=== PATIENT | female | born 1955 | race Caucasian/White ===

== ENCOUNTER 2017-01-12 12:31 | Day surgery (SDC) | payer OTHER ==
[2017-01-10 09:29] LABS: BLOOD UREA NITROGEN 21 mg/dL (7-18)
[2017-01-10 09:39] LABS: ASPARTATE AMINO TRANSFERASE 13 U/L (15-37)
[~2017-01-12] VITALS: Ht 160 cm; Wt 56.7 kg
[~2017-01-12 12:31] MED LIST: ASPI-496 PO; DILT240C9 PO; ESCI20TA PO; EVOL140P SC; FENO45CA2 PO; METF500T4 PO; TICA90TA PO; VALS1TAB30 PO
[2017-01-12 13:08] VITALS: BP 119/82
[2017-01-12] MEDS ORDERED: SODIUM CHLORIDE 0.9% 1,000 ML IV SCH (13:10)
[2017-01-12] MEDS ORDERED: VISIPAQUE 270 MG/ML, 150ML BOTTLE ONE (14:30)
[2017-01-12] MEDS ORDERED: NALOXONE 1 MG/ML, 2ML ONE (15:12)
[2017-01-12] MEDS ORDERED: FENTANYL PF 100 MCG/2ML ONE ×2 (15:12→16:00)
[2017-01-12] MEDS ORDERED: HEPARIN 1,000 UNITS/ML, 10ML ONE (15:12)
[2017-01-12] MEDS ORDERED: MIDAZOLAM 1 MG/ML, 5ML ONE (15:12)
[2017-01-12] MEDS ORDERED: LIDOCAINE 2%, 20ML ONE (15:36)
[2017-01-13] MEDS ORDERED: ASPIRIN 81 MG TABLET EC PO SCH (06:00)
[2017-01-13] MEDS ORDERED: metFORMIN 500 MG TABLET PO SCH (08:00)
[2017-01-13] MEDS ORDERED: FENOFIBRIC ACID 45 MG HOMEMEDPO SCH (09:00)
[2017-01-13] MEDS ORDERED: ESCITALOPRAM 20MG HOMEMEDPO SCH (09:00)
[2017-01-13] MEDS ORDERED: HYDROCHLOROTHIAZIDE 25 MG TABLET PO SCH (09:00)
[2017-01-13] MEDS ORDERED: VALSARTAN 320 MG TABLET PO SCH (09:00)
[2017-01-13] MEDS ORDERED: DILTIAZEM 240 MG CAP.ER.24H PO SCH (09:00)
[2017-01-16] MEDS ORDERED: EVOLOCUMAB SC SCH (09:00)
== END 2017-01-12 18:34 | disposition home or self-care (01) ==
LOC: OUT 12:31 → 4NOR 17:15 → OUT 18:34
PROVIDERS: ATTEND Internal Medicine Cardiovascular Disease
DX: I70.212 Atherosclerosis of native arteries of extremities with intermittent claudication, left leg (principal); E11.9 Type 2 diabetes mellitus without complications; E78.5 Hyperlipidemia, unspecified; I10 Essential (primary) hypertension; Z79.82 Long term (current) use of aspirin; Z88.6 Allergy status to analgesic agent; Z88.8 Allergy status to other drugs, medicaments and biological substances; Z71.6 Tobacco abuse counseling
CPT/HCPCS: 36415; 37225; 75625; 75710; 80053; 80061; 85025; 99156; 99157; C1714; C1760; C1769; C1884; C1894; C2623; J1644; J2250; J3010; J3490; Q9966; Q9967; J2310

== ENCOUNTER → 2017-06-21 | Outpatient (CLI) | payer OTHER | LOC: CVU 09:57 | PROVIDERS: ATTEND Internal Medicine Cardiovascular Disease | DX: I70.203 Unspecified atherosclerosis of native arteries of extremities, bilateral legs (principal); Z87.891 Personal history of nicotine dependence | CPT/HCPCS: 93922; 93925 ==

== ENCOUNTER 2017-08-09 09:33 | Day surgery (SDC) | payer OTHER ==
[2017-08-07 11:49] LABS: BASOPHILS # (AUTO) 0.09 x10^3/uL (0-0.1); BASOPHILS % (AUTO) 1 % (0-1); EOSINOPHILS # (AUTO) 0.13 x10^3/uL (0-0.4); EOSINOPHILS % (AUTO) 1 % (1-7); LYMPHOCYTES # (AUTO) 3.82 x10^3/uL (1-3.4); LYMPHOCYTES % (AUTO) 31 % (22-44); MD NO; MEAN CORPUSCULAR HEMOGLOBIN 32.7 pg (27.0-34.8); MEAN CORPUSCULAR HGB CONC 34.4 g/dL (32.4-35.8); MEAN PLATELET VOLUME 7.6 fL (7.4-10.4); MONOCYTES # (AUTO) 1.34 x10^3/uL (0.2-0.8); MONOCYTES % (AUTO) 11 % (2-9); NEUTROPHILS # (AUTO) 7.13 x10^3/uL (1.8-6.8); NEUTROPHILS % (AUTO) 57 % (42-75); PLATELET COUNT 499 x10^3/uL (130-400); RED BLOOD COUNT 4.67 x10^6/uL (3.82-5.3); RED CELL DISTRIBUTION WIDTH 14.5 % (9.6-15.2)
[2017-08-07 11:58] LABS: ANION GAP 4 mmol/L (5-15); CALCIUM 9.5 mg/dL (8.5-10.1); CHLORIDE 107 mmol/L (98-107); CREATININE 0.76 mg/dL (0.55-1.02)
[~2017-08-09] VITALS: Ht 160 cm; Wt 56.3 kg
[2017-08-09 10:06] VITALS: BP 110/79
[2017-08-09] MEDS ORDERED: VISIPAQUE 270 MG/ML, 150ML BOTTLE ONE (12:00)
[2017-08-09] MEDS ORDERED: LIDOCAINE 1%, 20ML ONE (12:49)
[2017-08-09] MEDS ORDERED: FLUMAZENIL 0.1 MG/1 ML, 5ML ONE (13:10)
[2017-08-09] MEDS ORDERED: NALOXONE 1 MG/ML, 2ML ONE (13:10)
[2017-08-09] MEDS ORDERED: HEPARIN 1,000 UNITS/ML, 10ML ONE (13:10)
[2017-08-09] MEDS ORDERED: MIDAZOLAM 1 MG/ML, 5ML ONE (13:10)
[2017-08-09] MEDS ORDERED: NITROGLYCERIN 5 MG/ML, 10ML ONE (13:10)
[2017-08-09] MEDS ORDERED: FENTANYL PF 100 MCG/2ML ONE ×2 (13:10)
[2017-08-09] MEDS ORDERED: PROTAMINE SULFATE 10 MG/ML, 25ML ONE (13:11)
[2017-08-09] MEDS ORDERED: CLOPIDOGREL 300 MG TABLET ONE (15:01)
== END 2017-08-09 17:20 | disposition home or self-care (01) ==
LOC: OUT 09:33
PROVIDERS: ATTEND Internal Medicine Cardiovascular Disease
DX: I70.213 Atherosclerosis of native arteries of extremities with intermittent claudication, bilateral legs (principal); I10 Essential (primary) hypertension; E78.2 Mixed hyperlipidemia; E11.9 Type 2 diabetes mellitus without complications; Z79.82 Long term (current) use of aspirin; Z88.1 Allergy status to other antibiotic agents; Z88.8 Allergy status to other drugs, medicaments and biological substances; Z71.6 Tobacco abuse counseling
CPT/HCPCS: 36415; 37227; 75716; 80048; 85025; 99156; 99157; C1714; C1725; C1751; C1760; C1769; C1876; C1884; C1894; J1644; J2250; J2310; J2720; J3010; J3490; Q9966; 75630

== ENCOUNTER → 2019-03-07 | Outpatient (CLI) | payer OTHER ==
[~2019-03-07] MED LIST changes: +METF500T17 PO; -METF500T4 PO
== END | disposition home or self-care (01) ==
LOC: CVU 13:39
PROVIDERS: ATTEND Internal Medicine Cardiovascular Disease
DX: I65.23 Occlusion and stenosis of bilateral carotid arteries (principal); I10 Essential (primary) hypertension; E78.5 Hyperlipidemia, unspecified; I73.9 Peripheral vascular disease, unspecified; Z82.49 Family history of ischemic heart disease and other diseases of the circulatory system
CPT/HCPCS: 93880

== ENCOUNTER 2019-12-20 12:34 | Inpatient (IN) | payer OTHER ==
[~2019-12-20] VITALS: Ht 160 cm; Wt 56.5 kg
[~2019-12-20 12:34] MED LIST changes: +DILT240C47 PO; -DILT240C9 PO; -EVOL140P SC; +EVOL140P3 SC
--- NOTE | 2019-12-20 13:00 | NUR ---
PT REPORTS INTERMITTENT ABD PAIN FOR ONE WEEK THAT WAS PRECEDED BY DIARRHEA THAT WAS USUALLY RELIEVED AFTER DIARRHEA. PT DENIES VOMITING, FEVERS, BODY ACHES, OR CHILLS.
[2019-12-20 13:28] LABS: MICROSCOPIC INDICATED
[2019-12-20] MEDS ORDERED: SODIUM CHLORIDE 0.9% 1,000ML IVBOLUS ONE (13:30)
[2019-12-20 13:47] LABS: MEAN CORPUSCULAR HGB CONC 34.4 g/dL (32.4-35.8); MEAN PLATELET VOLUME 7.3 fL (7.4-10.4); PLATELET COUNT 616 x10^3/uL (130-400); RED BLOOD COUNT 4.37 x10^6/uL (3.82-5.3); RED CELL DISTRIBUTION WIDTH 13.1 % (9.6-15.2)
[2019-12-20 13:57] LABS: ALANINE AMINOTRANSFERASE 14 U/L (12-78); ALBUMIN 3.3 g/dL (3.4-5.0); ANION GAP 8 mmol/L (5-15); CALCIUM 10.2 mg/dL (8.5-10.1); CHLORIDE 98 mmol/L (98-107); CREATININE 0.68 mg/dL (0.55-1.02)
[2019-12-20 14:00] LABS: ALKALINE PHOSPHATASE 96 U/L (45-117); BILIRUBIN,TOTAL 0.4 mg/dL (0.2-1.0); TOTAL PROTEIN 8.4 g/dL (6.4-8.2)
[2019-12-20 14:07] LABS: BASOPHILS # (AUTO) 0.04 x10^3/uL (0-0.1); BASOPHILS % (AUTO) 0 % (0-1); EOSINOPHILS # (AUTO) 0.01 x10^3/uL (0-0.4); EOSINOPHILS % (AUTO) 0 % (1-7); LYMPHOCYTES # (AUTO) 1.23 x10^3/uL (1-3.4); LYMPHOCYTES % (AUTO) 5 % (22-44); MD SCAN; MONOCYTES # (AUTO) 2.03 x10^3/uL (0.2-0.8); MONOCYTES % (AUTO) 9 % (2-9); NEUTROPHILS # (AUTO) 19.61 x10^3/uL (1.8-6.8); NEUTROPHILS % (AUTO) 86 % (42-75)
--- NOTE | 2019-12-20 14:10 | NUR ---
PT TO RESTROOM AFTER LITER BOLUS. PT AWARE OF NEED FOR STOOL SAMPLE.
--- NOTE | 2019-12-20 15:20 | NUR ---
3 P'S ADDRESSED. PT COMFORTABLE. VSS.
[2019-12-20] MEDS ORDERED: OMNIPAQUE 350 MG/ML, 100ML BOTTLE ONE (15:40)
[2019-12-20] MEDS ORDERED: METRONIDAZOLE PMX 500MG/100ML 100 ML ONE (16:26)
[2019-12-20] MEDS ORDERED: AMPICILLIN/SULBACTAM 3 GM in SODIUM CHLORIDE 0.9% 100 ML IV ONE (16:30)
[2019-12-20] MEDS ORDERED: METRONIDAZOLE PMX 500MG/100ML 100 ML IV ONE (16:30)
--- NOTE | 2019-12-20 16:31 | NUR ---
ANTIBITOICS STARTED PER MD ORDER. 3 P'S ADDRESSED AND PT COMFORTABLE. WAITING ON IR FOR ABSCESS DRAINAGE.
[2019-12-20] MEDS ORDERED: FLUMAZENIL 0.1 MG/1 ML, 5ML ONE (16:52)
[2019-12-20] MEDS ORDERED: FENTANYL PF 100 MCG/2ML ONE (16:52)
[2019-12-20] MEDS ORDERED: MIDAZOLAM 1 MG/ML, 5ML ONE (16:52)
[2019-12-20] MEDS ORDERED: NALOXONE 1 MG/ML, 2ML ONE (16:52)
[2019-12-20] MEDS ORDERED: LIDOCAINE 1%, 10ML ONE (16:53)
--- NOTE | 2019-12-20 17:10 | NUR ---
PT IN IR.
[2019-12-20] MEDS ORDERED: NICOTINE 14MG/24 HR PATCH.TD24 TD ONE (17:30)
[2019-12-20] MEDS ORDERED: ONDANSETRON 2MG/ML, 2ML IVPush PRN (17:30)
[2019-12-20] MEDS ORDERED: HYDROcodone/APAP 5/325 TABLET PO PRN (17:30)
[2019-12-20] MEDS ORDERED: MORPHINE SULFATE 4 MG/ML, 1ML IVPush PRN (17:30)
[2019-12-20] MEDS ORDERED: DOCUSATE 100 MG CAPSULE PO PRN (17:30)
[2019-12-20] MEDS ORDERED: LABETALOL 5MG/ML, 20ML IVPush PRN (17:30)
[2019-12-20] MEDS ORDERED: ONDANSETRON ODT 4 MG PO PRN (17:30)
[2019-12-20] MEDS ORDERED: ENALAPRILAT 1.25 MG/ML, 2ML IVPush PRN (17:30)
[2019-12-20] MEDS ORDERED: POLYETHYLENE GLYCOL 17 GM PACKET PO PRN (17:30)
[2019-12-20] MEDS ORDERED: PIPERACILLIN/TAZO/PMX 3.375GM 50 ML IV SCH (17:30)
--- NOTE | 2019-12-20 17:53 | NUR ---
PT BACK FROM IR. CHARLETTES. VERONICA STARTED. WAITING ON BED ASSIGNMENT UPSTAIRS.
--- NOTE | 2019-12-20 18:28 | NUR ---
BREAK RN: ATTEMPTED TO CALL REPORT X1
--- NOTE | 2019-12-20 18:37 | NUR ---
BREAK RN: PT AMBULATED TO BATHROOM WITH STEADY GAIT
[2019-12-20] MEDS ORDERED: KETOROLAC 30 MG/1 ML ONE (19:17)
[2019-12-20] MEDS: KETOROLAC 30 MG/1 ML IV PRN (19:25)
--- NOTE | 2019-12-20 19:26 | NUR ---
PT UP TO RESTROOM. PT REFUSED MORPHINE OR NORCO AND WANTED SOMETHING [employer] FOR PAIN. TORADOL GIVEN.
[2019-12-20 19:43] VITALS: BP 103/73
[2019-12-20] MEDS: SODIUM CHLORIDE 0.9% 1,000 ML IV SCH (20:33)
[2019-12-20] MEDS: PIPERACILLIN/TAZO/PMX 3.375GM 50 ML IV SCH (20:33)
[2019-12-21] MEDS: PIPERACILLIN/TAZO/PMX 3.375GM 50 ML IV SCH ×3 (02:33→14:27)
[2019-12-21 02:34] VITALS: BP 96/62
[2019-12-21 03:32] LABS: CLOSTRIDIUM DIFFICILE ANTIGEN NEGATIVE; CLOSTRIDIUM DIFFICILE TOXIN NEGATIVE (Negative)
[2019-12-21] MEDS: SODIUM CHLORIDE 0.9% 1,000 ML IV SCH ×2 (03:42→12:32)
[2019-12-21 05:01] LABS: MEAN CORPUSCULAR HGB CONC 34.1 g/dL (32.4-35.8); MEAN CORPUSCULAR VOLUME 93.7 fL (80-100); MEAN PLATELET VOLUME 7.6 fL (7.4-10.4); PLATELET COUNT 497 x10^3/uL (130-400); RED BLOOD COUNT 3.64 x10^6/uL (3.82-5.3); RED CELL DISTRIBUTION WIDTH 13.4 % (9.6-15.2)
[2019-12-21 05:08] LABS: ANION GAP 7 mmol/L (5-15); CHLORIDE 108 mmol/L (98-107); CREATININE 0.79 mg/dL (0.55-1.02)
[2019-12-21 06:25] LABS: MD YES
[2019-12-21 06:27] LABS: BAND#(MANUAL) 4.56 x10^3/uL; BANDS%(MANUAL) 15 % (0-7); LYMPH#(MANUAL) 3.34 x10^3/uL (1-3.4); LYMPHS% (MANUAL) 11 % (22-44); MONOS#(MANUAL) 1.82 x10^3/uL (0.3-2.7); MONOS% (MANUAL) 6 % (2-9); SEG#(MANUAL) 20.67 x10^3/uL (1.8-6.8); SEGS% (MANUAL) 68 % (42-75); TOXIC GRAN 1+
[2019-12-21 06:28] LABS: <PLATELET ESTIMATE> INCREASED; <PLT MORPHOLOGY> NORMAL PLT MORPH; <RBC MORPHOLOGY> NORMAL
[2019-12-21 07:10] VITALS: BP 93/62
[2019-12-21] MEDS: KETOROLAC 30 MG/1 ML IV PRN (08:41)
[2019-12-21 12:30] VITALS: BP 103/67
[2019-12-21] MEDS ORDERED: POTASSIUM CHLORIDE 40 MEQ in SODIUM CHLORIDE 0.9% 500 ML IV ONE (15:30)
[2019-12-21 19:33] VITALS: BP 123/76
[2019-12-21] MEDS: ACETAMINOPHEN 325 MG TABLET PO PRN (19:58)
[2019-12-21] MEDS: PIPERACILLIN/TAZO/PMX 4.5GM 100 ML IV SCH (20:48)
[2019-12-22 00:19] VITALS: BP 118/75
[2019-12-22] MEDS: SODIUM CHLORIDE 0.9% 1,000 ML IV SCH ×3 (00:25→16:17)
[2019-12-22] MEDS: PIPERACILLIN/TAZO/PMX 4.5GM 100 ML IV SCH ×4 (02:35→20:08)
[2019-12-22 06:10] LABS: ANION GAP 12 mmol/L (5-15); CALCIUM 9.2 mg/dL (8.5-10.1); CHLORIDE 114 mmol/L (98-107); CREATININE 0.64 mg/dL (0.55-1.02)
[2019-12-22 06:15] VITALS: BP 97/56
[2019-12-22 06:15] LABS: MEAN CORPUSCULAR HEMOGLOBIN 31.7 pg (27.0-34.8); MEAN CORPUSCULAR HGB CONC 33.2 g/dL (32.4-35.8); MEAN CORPUSCULAR VOLUME 95.4 fL (80-100); PLATELET COUNT 539 x10^3/uL (130-400); RED BLOOD COUNT 3.41 x10^6/uL (3.82-5.3); RED CELL DISTRIBUTION WIDTH 13.4 % (9.6-15.2)
[2019-12-22 06:55] LABS: BASOPHILS % (AUTO) 0 % (0-1); EOSINOPHILS # (AUTO) 0.07 x10^3/uL (0-0.4); EOSINOPHILS % (AUTO) 0 % (1-7); LYMPHOCYTES # (AUTO) 1.93 x10^3/uL (1-3.4); LYMPHOCYTES % (AUTO) 8 % (22-44); MD SCAN; MONOCYTES # (AUTO) 1.11 x10^3/uL (0.2-0.8); MONOCYTES % (AUTO) 5 % (2-9); NEUTROPHILS # (AUTO) 21.68 x10^3/uL (1.8-6.8); NEUTROPHILS % (AUTO) 87 % (42-75)
[2019-12-22] MEDS: ACETAMINOPHEN 325 MG TABLET PO PRN (07:49)
[2019-12-22 12:16] VITALS: BP 119/70
[2019-12-22 20:10] VITALS: BP 118/74
[2019-12-23] MEDS: SODIUM CHLORIDE 0.9% 1,000 ML IV SCH ×3 (00:11→15:41)
[2019-12-23 00:16] VITALS: BP 115/71
[2019-12-23] MEDS: PIPERACILLIN/TAZO/PMX 4.5GM 100 ML IV SCH ×4 (01:40→19:53)
[2019-12-23 05:08] LABS: MEAN CORPUSCULAR HEMOGLOBIN 31.3 pg (27.0-34.8); MEAN CORPUSCULAR HGB CONC 32.9 g/dL (32.4-35.8); MEAN PLATELET VOLUME 7.7 fL (7.4-10.4); PLATELET COUNT 543 x10^3/uL (130-400); RED BLOOD COUNT 3.27 x10^6/uL (3.82-5.3)
[2019-12-23 05:16] LABS: ANION GAP 9 mmol/L (5-15); CALCIUM 8.9 mg/dL (8.5-10.1); CHLORIDE 114 mmol/L (98-107)
[2019-12-23 05:19] LABS: CREATININE 0.42 mg/dL (0.55-1.02)
[2019-12-23 06:09] LABS: BASOPHILS # (AUTO) 0.03 x10^3/uL (0-0.1); BASOPHILS % (AUTO) 0 % (0-1); EOSINOPHILS # (AUTO) 0.26 x10^3/uL (0-0.4); EOSINOPHILS % (AUTO) 2 % (1-7); LYMPHOCYTES # (AUTO) 1.91 x10^3/uL (1-3.4); LYMPHOCYTES % (AUTO) 11 % (22-44); MD SCAN; MONOCYTES # (AUTO) 0.97 x10^3/uL (0.2-0.8); MONOCYTES % (AUTO) 6 % (2-9); NEUTROPHILS % (AUTO) 82 % (42-75)
[2019-12-23 06:38] VITALS: BP 147/84
[2019-12-23] MEDS: ACETAMINOPHEN 325 MG TABLET PO PRN ×2 (07:46→19:46)
[2019-12-23] MEDS ORDERED: POTASSIUM CHLORIDE 20 MEQ TAB.ER.PRT PO ONE (09:30)
[2019-12-23 12:10] VITALS: BP 148/79
[2019-12-23 18:27] VITALS: BP 153/80
[2019-12-24 00:21] VITALS: BP 145/74
[2019-12-24] MEDS: PIPERACILLIN/TAZO/PMX 4.5GM 100 ML IV SCH ×4 (00:53→19:57)
[2019-12-24] MEDS: SODIUM CHLORIDE 0.9% 1,000 ML IV SCH ×2 (00:54→07:56)
[2019-12-24 04:59] LABS: BASOPHILS # (AUTO) 0.02 x10^3/uL (0-0.1); BASOPHILS % (AUTO) 0 % (0-1); EOSINOPHILS # (AUTO) 0.21 x10^3/uL (0-0.4); EOSINOPHILS % (AUTO) 2 % (1-7); LYMPHOCYTES % (AUTO) 18 % (22-44); MD NO; MEAN CORPUSCULAR HEMOGLOBIN 31.9 pg (27.0-34.8); MEAN CORPUSCULAR HGB CONC 33.7 g/dL (32.4-35.8); MEAN CORPUSCULAR VOLUME 94.6 fL (80-100); MEAN PLATELET VOLUME 7.4 fL (7.4-10.4); MONOCYTES # (AUTO) 0.74 x10^3/uL (0.2-0.8); MONOCYTES % (AUTO) 6 % (2-9); NEUTROPHILS # (AUTO) 9.91 x10^3/uL (1.8-6.8); NEUTROPHILS % (AUTO) 75 % (42-75); PLATELET COUNT 584 x10^3/uL (130-400); RED BLOOD COUNT 3.37 x10^6/uL (3.82-5.3); RED CELL DISTRIBUTION WIDTH 13.5 % (9.6-15.2)
[2019-12-24 05:00] LABS: HCT (SEDRATE) 31.8 % (34.6-47.8)
[2019-12-24 05:09] LABS: CHLORIDE 112 mmol/L (98-107)
[2019-12-24 05:22] LABS: ANION GAP 9 mmol/L (5-15); CALCIUM 8.9 mg/dL (8.5-10.1); CREATININE 0.55 mg/dL (0.55-1.02)
[2019-12-24 06:42] VITALS: BP 154/83
[2019-12-24] MEDS ORDERED: POTASSIUM CHLORIDE 20 MEQ TAB.ER.PRT PO ONE ×2 (07:30→17:00)
[2019-12-24] MEDS: ACETAMINOPHEN 325 MG TABLET PO PRN ×2 (11:46→20:03)
[2019-12-24 12:15] VITALS: BP 148/81
[2019-12-24 12:18] VITALS: BP 148/81
[2019-12-24 12:26] VITALS: BP 132/94
[2019-12-24 18:26] VITALS: BP 142/80
[2019-12-25] MEDS: SODIUM CHLORIDE 0.9% 1,000 ML IV SCH ×2 (00:06→08:24)
[2019-12-25 01:39] VITALS: BP 143/80
[2019-12-25] MEDS: PIPERACILLIN/TAZO/PMX 4.5GM 100 ML IV SCH ×2 (01:49→08:24)
[2019-12-25 04:03] LABS: BASOPHILS # (AUTO) 0.02 x10^3/uL (0-0.1); BASOPHILS % (AUTO) 0 % (0-1); EOSINOPHILS # (AUTO) 0.21 x10^3/uL (0-0.4); EOSINOPHILS % (AUTO) 2 % (1-7); LYMPHOCYTES # (AUTO) 2.12 x10^3/uL (1-3.4); LYMPHOCYTES % (AUTO) 21 % (22-44); MD NO; MEAN CORPUSCULAR HEMOGLOBIN 31.5 pg (27.0-34.8); MEAN CORPUSCULAR HGB CONC 33.2 g/dL (32.4-35.8); MEAN CORPUSCULAR VOLUME 95.1 fL (80-100); MEAN PLATELET VOLUME 6.9 fL (7.4-10.4); MONOCYTES # (AUTO) 0.84 x10^3/uL (0.2-0.8); MONOCYTES % (AUTO) 8 % (2-9); NEUTROPHILS % (AUTO) 68 % (42-75); PLATELET COUNT 533 x10^3/uL (130-400); RED BLOOD COUNT 3.04 x10^6/uL (3.82-5.3); RED CELL DISTRIBUTION WIDTH 13.4 % (9.6-15.2)
[2019-12-25 04:13] LABS: ANION GAP 7 mmol/L (5-15); CALCIUM 8.3 mg/dL (8.5-10.1); CHLORIDE 113 mmol/L (98-107); CREATININE 0.32 mg/dL (0.55-1.02)
[2019-12-25 06:30] VITALS: BP 152/84
[2019-12-25] MEDS ORDERED: CEFTRIAXONE PMX 2GM/50ML 50 ML IV SCH (10:00)
[2019-12-25 12:18] VITALS: BP 134/82
[2019-12-25] MEDS ORDERED: LINEZOLID 600 MG TABLET PO SCH ×2 (17:00→21:00)
== END 2019-12-25 21:00 | disposition home or self-care (01) | DRG 872 ==
LOC: ED 14:54 → EDIP 17:36 → 3N 19:41
PROVIDERS: ADMIT Family Medicine; ATTEND Family Medicine
PROC: 0W9H30Z Drainage of Retroperitoneum with Drainage Device, Percutaneous Approach (ICD-10-PCS; 2019-12-20)
PROC: 02HV33Z Insertion of Infusion Device into Superior Vena Cava, Percutaneous Approach (ICD-10-PCS; principal; 2019-12-24)
PROC: B5181ZA Fluoroscopy of Superior Vena Cava using Low Osmolar Contrast, Guidance (ICD-10-PCS; 2019-12-24)
PROC: B548ZZA Ultrasonography of Superior Vena Cava, Guidance (ICD-10-PCS; 2019-12-24)
DX: A41.9 Sepsis, unspecified organism (principal); E87.1 Hypo-osmolality and hyponatremia; F19.20 Other psychoactive substance dependence, uncomplicated; K57.20 Diverticulitis of large intestine with perforation and abscess without bleeding; E78.5 Hyperlipidemia, unspecified; E83.52 Hypercalcemia; E86.0 Dehydration; E87.6 Hypokalemia; F12.10 Cannabis abuse, uncomplicated; F17.210 Nicotine dependence, cigarettes, uncomplicated; I10 Essential (primary) hypertension; I73.9 Peripheral vascular disease, unspecified; N73.9 Female pelvic inflammatory disease, unspecified; M79.89 Other specified soft tissue disorders; D72.829 Elevated white blood cell count, unspecified; Z82.49 Family history of ischemic heart disease and other diseases of the circulatory system; Z82.71 Family history of polycystic kidney; Z95.820 Peripheral vascular angioplasty status with implants and grafts; Z79.899 Other long term (current) drug therapy; Z95.828 Presence of other vascular implants and grafts; Z84.1 Family history of disorders of kidney and ureter; Z88.8 Allergy status to other drugs, medicaments and biological substances; Z79.01 Long term (current) use of anticoagulants
CPT/HCPCS: 36415; 75989; 84145; 89055; 96361; 96365; 96367; 99285; J3490; 36573; 49406; 74177; 80048; 80053; 81001; 83605; 83735; 85025; 85651; 86140; 87040; 87070; 87075; 87077; 87086; 87186; 87205; 87324; 99156; 99157; G0378; J0295; J0696; J1885; J2250; J2543; J3010; J3480; Q9967; C1729; C1751; C1769; J2310; J7030; J7040

== ENCOUNTER → 2020-01-14 | Outpatient (CLI) | payer OTHER ==
[~2020-01-14] MED LIST changes: +OMNIPAQUE 350 MG/ML, 100ML BOTTLE ONE
== END | disposition home or self-care (01) ==
LOC: CFH 13:52
PROVIDERS: ATTEND Internal Medicine Infectious Disease
DX: N73.8 Other specified female pelvic inflammatory diseases (principal); K65.1 Peritoneal abscess; K76.0 Fatty (change of) liver, not elsewhere classified; K76.89 Other specified diseases of liver
CPT/HCPCS: 74177; Q9967

== ENCOUNTER → 2020-02-05 | Outpatient (CLI) | payer OTHER ==
[~2020-02-05] MED LIST changes: +ASPI81TA45 PO; +MULT-658 PO; -OMNIPAQUE 350 MG/ML, 100ML BOTTLE ONE; +ROSU5TAB12 PO
[2020-02-05 10:52] LABS: BASOPHILS % (AUTO) 1 % (0-1); EOSINOPHILS % (AUTO) 1 % (1-7); LYMPHOCYTES % (AUTO) 17 % (22-44); MEAN CORPUSCULAR HEMOGLOBIN 31.2 pg (27.0-34.8); MEAN CORPUSCULAR HGB CONC 33.2 g/dL (32.4-35.8); MONOCYTES % (AUTO) 8 % (2-9); NEUTROPHILS % (AUTO) 74 % (42-75); PLATELET COUNT 641 x10^3/uL (130-400); RED BLOOD COUNT 3.88 x10^6/uL (3.82-5.3); RED CELL DISTRIBUTION WIDTH 15.2 % (9.6-15.2)
[2020-02-05 11:05] LABS: ALANINE AMINOTRANSFERASE 18 U/L (12-78); ALBUMIN 3.2 g/dL (3.4-5.0); ANION GAP 4 mmol/L (5-15); CALCIUM 9.8 mg/dL (8.5-10.1); CHLORIDE 112 mmol/L (98-107); CREATININE 0.66 mg/dL (0.55-1.02)
[2020-02-05 11:07] LABS: ALKALINE PHOSPHATASE 89 U/L (45-117); BILIRUBIN,TOTAL 0.2 mg/dL (0.2-1.0); TOTAL PROTEIN 7.7 g/dL (6.4-8.2)
[2020-02-05 11:08] LABS: MD SCAN
== END | disposition home or self-care (01) ==
LOC: STAR 09:42
PROVIDERS: ATTEND Surgery
DX: Z01.818 Encounter for other preprocedural examination (principal)
CPT/HCPCS: 36415; 71046; 80053; 85025; 93005

== ENCOUNTER 2020-02-13 10:37 | Emergency (ER) | payer OTHER ==
[~2020-02-13] VITALS: Ht 160 cm; Wt 49.3 kg
[2020-02-13] MEDS ORDERED: SODIUM CHLORIDE FLUSH 10ML SYR IVF ONE (11:00)
[2020-02-13 11:44] LABS: ALANINE AMINOTRANSFERASE 17 U/L (12-78); ANION GAP 7 mmol/L (5-15); CALCIUM 10.1 mg/dL (8.5-10.1); CHLORIDE 102 mmol/L (98-107); CREATININE 0.63 mg/dL (0.55-1.02)
[2020-02-13 11:46] LABS: ALKALINE PHOSPHATASE 109 U/L (45-117); BILIRUBIN,TOTAL 0.2 mg/dL (0.2-1.0); TOTAL PROTEIN 8.1 g/dL (6.4-8.2)
[2020-02-13 11:55] LABS: BASOPHILS % (AUTO) 1 % (0-1); EOSINOPHILS % (AUTO) 2 % (1-7); LYMPHOCYTES % (AUTO) 14 % (22-44); MEAN CORPUSCULAR HEMOGLOBIN 31.4 pg (27.0-34.8); MEAN CORPUSCULAR HGB CONC 33.9 g/dL (32.4-35.8); MEAN PLATELET VOLUME 7.1 fL (7.4-10.4); MONOCYTES % (AUTO) 9 % (2-9); NEUTROPHILS % (AUTO) 75 % (42-75); PLATELET COUNT 793 x10^3/uL (130-400); RED BLOOD COUNT 3.88 x10^6/uL (3.82-5.3); RED CELL DISTRIBUTION WIDTH 14.2 % (9.6-15.2)
--- NOTE | 2020-02-13 12:09 | NUR ---
SERVICE TECH: PT CALLED FOR ROOM, NO ANSWER
--- NOTE | 2020-02-13 12:12 | NUR ---
MOTORS ASSEMBLER: PT TO ROOM FROM [facility]
--- NOTE | 2020-02-13 12:48 | NUR ---
PT TO IMAGING AT THIS TIME
[2020-02-13] MEDS ORDERED: OMNIPAQUE 350 MG/ML, 100ML BOTTLE ONE (12:59)
[2020-02-13 13:18] LABS: <RBC MORPHOLOGY> NORMAL; MD MORPH REVIEW ONLY
[2020-02-13 13:19] LABS: <PLATELET ESTIMATE> INCREASED; <PLT MORPHOLOGY> NORMAL PLT MORPH
[2020-02-13 13:25] LABS: MICROSCOPIC NOT IND
--- NOTE | 2020-02-13 13:33 | NUR ---
BREAK RN:BEDSIDE REPORT RECEIVED FROM PRIMARY RN.
[2020-02-13] MEDS ORDERED: ERTAPENEM 1 GM in SODIUM CHLORIDE 0.9% 50 ML IV ONE (14:30)
[2020-02-13 14:59] VITALS: BP 108/67
--- NOTE | 2020-02-13 15:32 | NUR ---
TASK RN: ABX ADMINISTERED AFTER CLARIFICATION THAT BLOOD CULTURES IN PROCESS RIGHT ARM PIV REMOVED PER PATIENT REQUEST
--- NOTE | 2020-02-13 15:51 | NUR ---
ABX COMPLETE, NO ABNORMAL REACTION NOTED DISCHARGED HOME WITH PLAN TO F/U WITH DR. THOMPSON (INFECTIOUS DISEASE DOC FOR PICC LINE ABX PLAN)
== END 2020-02-13 15:53 | disposition home or self-care (01) ==
LOC: ED 13:34
DX: K57.20 Diverticulitis of large intestine with perforation and abscess without bleeding (principal); R10.32 Left lower quadrant pain; Z87.891 Personal history of nicotine dependence
CPT/HCPCS: 36415; 36573; 74177; 80053; 81003; 83605; 83690; 84145; 85025; 87040; 96365; 99285; C1751; J1335; Q9967

== ENCOUNTER → 2020-02-14 | Outpatient (CLI) | payer OTHER ==
[~2020-02-14] MED LIST changes: +AMOX1TAB12 PO; +ERTA1VIA4 IV
== END | disposition home or self-care (01) ==
LOC: STAR 13:54
PROVIDERS: ATTEND Anesthesiology
DX: Z01.812 Encounter for preprocedural laboratory examination (principal); Z20.828 Contact with and (suspected) exposure to other viral communicable diseases
CPT/HCPCS: 36415; 87635

== ENCOUNTER 2020-02-18 05:58 | Day surgery (SDC) | payer OTHER ==
[~2020-02-18] VITALS: Ht 160 cm; Wt 50.0 kg
[~2020-02-18 05:58] MED LIST changes: -AMOX1TAB12 PO; -ERTA1VIA4 IV
[2020-02-18 06:38] VITALS: BP 129/83
[2020-02-18] MEDS ORDERED: CHLORHEXIDINE 15 ML UDC MM ONE (07:00)
[2020-02-18] MEDS ORDERED: LACTATED RINGERS 1,000 ML IV SCH (07:00)
[2020-02-18] MEDS ORDERED: MEPERIDINE/PF 25MG/0.5ML IVPush PRN (08:00)
[2020-02-18] MEDS ORDERED: EPHEDRINE 50 MG/ML, 1ML IVPush PRN (08:00)
[2020-02-18] MEDS ORDERED: ONDANSETRON 2MG/ML, 2ML IVPush PRN (08:00)
[2020-02-18] MEDS ORDERED: MIDAZOLAM 1 MG/ML, 2ML IV PRN (08:00)
[2020-02-18] MEDS ORDERED: OXYcodone 5 MG/5 ML ORAL.SOL UDC PO PRN (08:00)
[2020-02-18] MEDS ORDERED: PROMETHAZINE 25 MG/ML, 1ML IVPush PRN (08:00)
[2020-02-18] MEDS ORDERED: LABETALOL 5MG/ML, 20ML IV PRN (08:00)
[2020-02-18] MEDS ORDERED: HYDROmorphone 1 MG/ML, 1ML INJ IVPush PRN (08:00)
[2020-02-18] MEDS ORDERED: ALBUTEROL SULFATE 2.5 MG/3 ML NPPB PRN (08:00)
[2020-02-18] MEDS ORDERED: hydrALAzine 20 MG/ML, 1ML IV PRN (08:00)
[2020-02-18] MEDS ORDERED: FENTANYL PF 100 MCG/2ML IV PRN (08:00)
[2020-02-18] MEDS ORDERED: ACETAMINOPHEN 325 MG TABLET PO PRN (08:00)
[2020-02-18] MEDS ORDERED: DIPHENHYDRAMINE 50 MG/ML, 1ML IVPush PRN (08:00)
[2020-02-18] MEDS ORDERED: DIAZEPAM 5 MG/ML, 2ML IVPush PRN (08:00)
[2020-02-18] MEDS ORDERED: PROMETHAZINE 12.5 MG SUPP PR PRN (08:00)
[2020-02-18] MEDS ORDERED: PROPOFOL 10 MG/ML, 20ML ONE (08:40)
[2020-02-19] MEDS ORDERED: AMOX1TAB12 PO (10:55)
[2020-02-19] MEDS ORDERED: ERTA1VIA4 IV (11:17)
== END 2020-02-18 09:00 | disposition home or self-care (01) ==
LOC: OUT 05:58
PROVIDERS: ATTEND Surgery
DX: K57.20 Diverticulitis of large intestine with perforation and abscess without bleeding (principal); K56.699 Other intestinal obstruction unspecified as to partial versus complete obstruction; K63.5 Polyp of colon; I10 Essential (primary) hypertension; E78.5 Hyperlipidemia, unspecified; Z79.82 Long term (current) use of aspirin; Z79.899 Other long term (current) drug therapy; Z87.891 Personal history of nicotine dependence; Z88.8 Allergy status to other drugs, medicaments and biological substances; Z98.890 Other specified postprocedural states
CPT/HCPCS: 45330; J2704; J7120

== ENCOUNTER 2020-02-19 09:48 | Inpatient (IN) | payer OTHER ==
[~2020-02-19] VITALS: Ht 160 cm; Wt 53.0 kg
[~2020-02-19 09:48] MED LIST changes: +DILT-88 PO; -DILT240C47 PO
[2020-02-19] MEDS ORDERED: AMOX1TAB12 PO (10:55)
[2020-02-19] MEDS ORDERED: LACTATED RINGERS 1,000 ML IV SCH (11:00)
[2020-02-19] MEDS ORDERED: CHLORHEXIDINE 15 ML UDC MM ONE (11:00)
[2020-02-19 11:08] VITALS: BP 158/96
[2020-02-19] MEDS ORDERED: ERTA1VIA4 IV (11:17)
[2020-02-19] MEDS ORDERED: MIDAZOLAM 1 MG/ML, 2ML ONE (11:34)
[2020-02-19] MEDS ORDERED: FENTANYL PF 250 MCG/5ML ONE (11:35)
[2020-02-19] MEDS ORDERED: INDOCYANINE GREEN 25 MG VIAL ONE (12:30)
[2020-02-19] MEDS ORDERED: BUPIVACAINE/PF 0.5% ONE (12:31)
[2020-02-19] MEDS ORDERED: ONDANSETRON 2MG/ML, 2ML ONE (13:18)
[2020-02-19] MEDS ORDERED: CEFAZOLIN 1,000 MG ONE (13:18)
[2020-02-19] MEDS ORDERED: PROPOFOL 10 MG/ML, 20ML ONE (13:18)
[2020-02-19] MEDS ORDERED: SUCCINYLCHOLINE 20 MG/ML, 10ML ONE (13:18)
[2020-02-19] MEDS ORDERED: DEXAMETHASONE 4 MG/ML, 1ML ONE (13:18)
[2020-02-19] MEDS ORDERED: ROCURONIUM 10 MG/ML,10ML ONE (13:18)
[2020-02-19] MEDS ORDERED: SUGAMMADEX 200 MG/2 ML IVPush ONE (13:18)
[2020-02-19] MEDS ORDERED: METRONIDAZOLE PMX 500MG/100ML 100 ML ONE (13:39)
[2020-02-19] MEDS ORDERED: KETOROLAC 30 MG/1 ML IV PRN (16:00)
[2020-02-19] MEDS ORDERED: ALBUTEROL SULFATE 2.5 MG/3 ML NPPB PRN (16:00)
[2020-02-19] MEDS ORDERED: PROMETHAZINE 25 MG/ML, 1ML IV PRN (16:00)
[2020-02-19] MEDS ORDERED: hydrALAzine 20 MG/ML, 1ML IV PRN (16:00)
[2020-02-19] MEDS ORDERED: LABETALOL 5MG/ML, 20ML IV PRN (16:00)
[2020-02-19] MEDS ORDERED: ONDANSETRON 2MG/ML, 2ML IVPush PRN (16:00)
[2020-02-19] MEDS ORDERED: OXYcodone 5 MG/5 ML ORAL.SOL UDC PO PRN (16:00)
[2020-02-19] MEDS ORDERED: MEPERIDINE/PF 25MG/0.5ML IVPush PRN (16:00)
[2020-02-19] MEDS ORDERED: METOCLOPRAMIDE 5 MG/ML, 2ML IV PRN (16:00)
[2020-02-19] MEDS: FENTANYL PF 100 MCG/2ML IV PRN ×4 (16:00→17:00)
[2020-02-19] MEDS ORDERED: DIAZEPAM 5 MG/ML, 2ML IV PRN ×2 (16:00)
[2020-02-19] MEDS ORDERED: FENTANYL PF 100 MCG/2ML ONE ×2 (16:01→16:55)
[2020-02-19] MEDS ORDERED: MEPERIDINE/PF 25MG/ML,1ML ONE (16:18)
[2020-02-19] MEDS ORDERED: OXYcodone 5 MG/5 ML ORAL.SOL UDC ONE (16:18)
[2020-02-19] MEDS ORDERED: HYDROmorphone 1 MG/ML, 1ML INJ ONE ×2 (17:09→19:43)
[2020-02-19] MEDS: HYDROmorphone 1 MG/ML, 1ML INJ IV PRN ×3 (17:14→19:40)
[2020-02-19] MEDS ORDERED: DIPHENHYDRAMINE 25 MG CAPSULE PO PRN (20:30)
[2020-02-19] MEDS ORDERED: ONDANSETRON 2MG/ML, 2ML IV PRN (20:30)
[2020-02-19] MEDS ORDERED: SCOPOLAMINE 1MG PATCH TD PRN (20:30)
[2020-02-19] MEDS ORDERED: HALOPERIDOL 5 MG/ML IVPush PRN (20:30)
[2020-02-19] MEDS ORDERED: LORazepam 1MG TABLET PO PRN (20:30)
[2020-02-19] MEDS ORDERED: CALCIUM CARBONATE 500 MG TAB.CHEW PO PRN (20:30)
[2020-02-19] MEDS ORDERED: MORPHINE SULFATE 4 MG/ML, 1ML IVPush PRN (20:30)
[2020-02-19] MEDS ORDERED: DIPHENHYDRAMINE 50 MG/ML, 1ML IVPush PRN (20:30)
[2020-02-19] MEDS ORDERED: TRAZODONE 50MG TABLET PO PRN (20:30)
[2020-02-19] MEDS ORDERED: DEXAMETHASONE 4 MG/ML, 1ML IVPush PRN (20:30)
[2020-02-19] MEDS ORDERED: LORazepam 2 MG/ML, 1ML IVPush PRN (20:30)
[2020-02-19] MEDS: ATORVASTATIN 20 MG TABLET PO SCH (21:32)
[2020-02-19] MEDS: OXYcodone IR 5MG TABLET PO PRN (21:32)
[2020-02-19] MEDS: ACETAMINOPHEN 500 MG TABLET PO SCH (21:33)
[2020-02-19] MEDS: D5%-0.45NACL+KCL 20MEQ 1,000 ML IV SCH (22:42)
[2020-02-19] MEDS: ERTAPENEM 1 GM in SODIUM CHLORIDE 0.9% 50 ML IV SCH (22:42)
[2020-02-19] MEDS: IBUPROFEN 800 MG TABLET PO SCH (22:42)
[2020-02-20 00:08] VITALS: BP 134/69
[2020-02-20] MEDS: OXYcodone IR 5MG TABLET PO PRN ×3 (02:04→22:43)
[2020-02-20] MEDS: ACETAMINOPHEN 500 MG TABLET PO SCH ×4 (03:25→22:41)
[2020-02-20 03:27] VITALS: BP 129/76
[2020-02-20 03:58] LABS: BASOPHILS % (AUTO) 0 % (0-1); EOSINOPHILS % (AUTO) 0 % (1-7); LYMPHOCYTES % (AUTO) 13 % (22-44); MEAN CORPUSCULAR HEMOGLOBIN 30.5 pg (27.0-34.8); MEAN CORPUSCULAR HGB CONC 33.7 g/dL (32.4-35.8); MEAN PLATELET VOLUME 6.4 fL (7.4-10.4); MONOCYTES % (AUTO) 9 % (2-9); NEUTROPHILS % (AUTO) 78 % (42-75); PLATELET COUNT 589 x10^3/uL (130-400); RED BLOOD COUNT 3.18 x10^6/uL (3.82-5.3); RED CELL DISTRIBUTION WIDTH 14.5 % (9.6-15.2)
[2020-02-20 04:00] LABS: MD NO
[2020-02-20 04:12] LABS: ALBUMIN 2.3 g/dL (3.4-5.0); ANION GAP 7 mmol/L (5-15); CALCIUM 8.4 mg/dL (8.5-10.1); CHLORIDE 110 mmol/L (98-107); CREATININE 0.38 mg/dL (0.55-1.02)
[2020-02-20 08:26] VITALS: BP 133/78
[2020-02-20] MEDS: VALSARTAN 320 MG TABLET PO SCH (08:54)
[2020-02-20] MEDS: DILTIAZEM 240 MG CAP.ER.24H PO SCH (08:54)
[2020-02-20] MEDS: IBUPROFEN 800 MG TABLET PO SCH ×3 (08:54→22:42)
[2020-02-20] MEDS: HYDROCHLOROTHIAZIDE 25 MG TABLET PO SCH (08:55)
[2020-02-20] MEDS: D5%-0.45NACL+KCL 20MEQ 1,000 ML IV SCH (10:48)
[2020-02-20] MEDS ORDERED: ENOXAPARIN 40 MG/0.4 ML SQ SCH (12:00)
[2020-02-20 12:30] VITALS: BP 110/66
[2020-02-20 20:51] VITALS: BP 124/81
[2020-02-20] MEDS: ERTAPENEM 1 GM in SODIUM CHLORIDE 0.9% 50 ML IV SCH (22:41)
[2020-02-20] MEDS: ATORVASTATIN 20 MG TABLET PO SCH ×2 (22:43→22:47)
[2020-02-21] MEDS: D5%-0.45NACL+KCL 20MEQ 1,000 ML IV SCH (01:06)
[2020-02-21 01:40] VITALS: BP 131/75
[2020-02-21] MEDS: ACETAMINOPHEN 500 MG TABLET PO SCH ×2 (04:45→10:17)
[2020-02-21 05:04] LABS: ALBUMIN 2.3 g/dL (3.4-5.0); ANION GAP 7 mmol/L (5-15); CALCIUM 8.5 mg/dL (8.5-10.1); CHLORIDE 110 mmol/L (98-107); CREATININE 0.52 mg/dL (0.55-1.02)
[2020-02-21 05:12] LABS: BASOPHILS % (AUTO) 1 % (0-1); EOSINOPHILS % (AUTO) 2 % (1-7); LYMPHOCYTES % (AUTO) 19 % (22-44); MEAN CORPUSCULAR HEMOGLOBIN 31.1 pg (27.0-34.8); MEAN CORPUSCULAR HGB CONC 33.5 g/dL (32.4-35.8); MEAN PLATELET VOLUME 7.2 fL (7.4-10.4); MONOCYTES % (AUTO) 11 % (2-9); NEUTROPHILS % (AUTO) 67 % (42-75); PLATELET COUNT 537 x10^3/uL (130-400); RED BLOOD COUNT 3.05 x10^6/uL (3.82-5.3); RED CELL DISTRIBUTION WIDTH 14.7 % (9.6-15.2)
[2020-02-21 05:22] LABS: MD NO
[2020-02-21 08:18] VITALS: BP 126/74
[2020-02-21] MEDS: IBUPROFEN 800 MG TABLET PO SCH (09:07)
[2020-02-21] MEDS: HYDROCHLOROTHIAZIDE 25 MG TABLET PO SCH (09:07)
[2020-02-21] MEDS: VALSARTAN 320 MG TABLET PO SCH (09:07)
[2020-02-21] MEDS: DILTIAZEM 240 MG CAP.ER.24H PO SCH (09:07)
== END 2020-02-21 12:13 | disposition home or self-care (01) | DRG 334 ==
LOC: ORIP 10:32 → 4NE 20:01 → DCLOUNGE 02-21 11:37
PROVIDERS: ADMIT Surgery; ATTEND Surgery
PROC: 0DTP4ZZ Resection of Rectum, Percutaneous Endoscopic Approach (ICD-10-PCS; principal; 2020-02-19 12:30)
PROC: 8E0W4CZ Robotic Assisted Procedure of Trunk Region, Percutaneous Endoscopic Approach (ICD-10-PCS; 2020-02-19 12:30)
DX: K57.20 Diverticulitis of large intestine with perforation and abscess without bleeding (principal); I73.9 Peripheral vascular disease, unspecified; E78.5 Hyperlipidemia, unspecified; F12.90 Cannabis use, unspecified, uncomplicated; I10 Essential (primary) hypertension; Z82.49 Family history of ischemic heart disease and other diseases of the circulatory system; Z82.71 Family history of polycystic kidney; Z87.891 Personal history of nicotine dependence; Z95.820 Peripheral vascular angioplasty status with implants and grafts; Z79.899 Other long term (current) drug therapy
CPT/HCPCS: 36415; 74018; 80048; 82040; 85025; 86850; 86900; 87015; 87070; 87075; 87076; 87077; 87102; 87106; 87116; 87186; 87205; 87206; 88307; C1729; G0378; J0690; J1100; J1170; J1335; J1650; J2175; J2250; J2405; J2704; J3010; C1765; J0330; J2270; J3480; J7120

== ENCOUNTER → 2020-03-11 | Outpatient (CLI) | payer OTHER ==
[~2020-03-11] MED LIST changes: +AMOX1TAB12 PO; +ERTA1VIA4 IV; +OMNIPAQUE 350 MG/ML, 75ML BOTTLE ONE
== END | disposition home or self-care (01) ==
LOC: CFH 14:33
PROVIDERS: ATTEND Internal Medicine Infectious Disease
DX: K57.20 Diverticulitis of large intestine with perforation and abscess without bleeding (principal); K65.1 Peritoneal abscess
CPT/HCPCS: 74177; Q9967

== ENCOUNTER 2020-04-27 14:29 | Emergency (ER) | payer OTHER ==
[~2020-04-27] VITALS: Ht 160 cm; Wt 56.4 kg
[~2020-04-27 14:29] MED LIST changes: -ESCI20TA PO; +ESCI20TA5 PO; -OMNIPAQUE 350 MG/ML, 75ML BOTTLE ONE
[2020-04-27 15:04] LABS: BASOPHILS % (AUTO) 1 % (0-1); EOSINOPHILS % (AUTO) 0 % (1-7); LYMPHOCYTES % (AUTO) 23 % (22-44); MEAN CORPUSCULAR HEMOGLOBIN 31.6 pg (27.0-34.8); MEAN CORPUSCULAR HGB CONC 34.1 g/dL (32.4-35.8); MONOCYTES % (AUTO) 9 % (2-9); NEUTROPHILS % (AUTO) 67 % (42-75); PLATELET COUNT 531 x10^3/uL (130-400); RED BLOOD COUNT 4.79 x10^6/uL (3.82-5.3); RED CELL DISTRIBUTION WIDTH 15.2 % (9.6-15.2)
[2020-04-27 15:05] LABS: MD NO
[2020-04-27 15:14] LABS: ALBUMIN 4.7 g/dL (3.4-5.0); ANION GAP 7 mmol/L (5-15); CALCIUM 10.8 mg/dL (8.5-10.1); CHLORIDE 107 mmol/L (98-107); CREATININE 0.79 mg/dL (0.55-1.02)
[2020-04-27 15:18] LABS: TROPONIN I < 0.015 ng/mL (0.000-0.045)
--- NOTE | 2020-04-27 15:28 | NUR ---
COLLET GLUER: PT AMBULATORY TO ROOM FROM LOBBY
--- NOTE | 2020-04-27 15:45 | NUR ---
BREAK RN: PT REPORTS A HEADACHE AND DIZZINESS X2 DAYS. PT SEEN BY DR KUMARI. NO ACUTE DISTRESS NOTED. VS STABLE. CALL LIGHT IN PLACE. WILL CONTINUE TO MONITOR.
[2020-04-27] MEDS ORDERED: KETOROLAC 30 MG/1 ML ONE (15:47)
[2020-04-27] MEDS ORDERED: KETOROLAC 30 MG/1 ML IVPush ONE (16:00)
[2020-04-27] MEDS ORDERED: SODIUM CHLORIDE 0.9% 1,000ML IVBOLUS ONE (16:00)
[2020-04-27] MEDS ORDERED: SODIUM CHLORIDE FLUSH 10ML SYR IVF ONE (16:00)
--- NOTE | 2020-04-27 16:06 | NUR ---
BREAK RN: REPORT GIVEN TO TISHA MELGAR
--- NOTE | 2020-04-27 16:20 | NUR ---
UA SENT. PT RESTING IN [facility]. VSS
[2020-04-27 16:26] LABS: MICROSCOPIC NOT IND
[2020-04-27 16:55] VITALS: BP 163/83
--- NOTE | 2020-04-27 16:55 | NUR ---
MD BEDSIDE FOR REASSEMENT
== END 2020-04-27 17:15 | disposition home or self-care (01) ==
LOC: ED 17:09
DX: R42 Dizziness and giddiness (principal); R51.9 Headache, unspecified; R00.0 Tachycardia, unspecified; R07.9 Chest pain, unspecified; I10 Essential (primary) hypertension; Z87.891 Personal history of nicotine dependence
CPT/HCPCS: 36415; 71045; 80048; 81003; 82040; 84484; 85025; 93005; 96361; 96374; 99285; J1885; J7030

== ENCOUNTER 2020-09-04 09:50 | Emergency (ER) | payer OTHER ==
[~2020-09-04] VITALS: Ht 160 cm; Wt 57.0 kg
[~2020-09-04 09:50] MED LIST changes: -ESCI20TA5 PO; +ESCI20TA8 PO
[2020-09-04 10:55] LABS: MICROSCOPIC NOT IND
[2020-09-04 11:01] LABS: BASOPHILS % (AUTO) 1 % (0-1); EOSINOPHILS % (AUTO) 0 % (1-7); LYMPHOCYTES % (AUTO) 23 % (22-44); MEAN CORPUSCULAR HEMOGLOBIN 32.5 pg (27.0-34.8); MEAN CORPUSCULAR HGB CONC 34.5 g/dL (32.4-35.8); MEAN PLATELET VOLUME 7.5 fL (7.4-10.4); MONOCYTES % (AUTO) 10 % (2-9); NEUTROPHILS % (AUTO) 66 % (42-75); PLATELET COUNT 426 x10^3/uL (130-400); RED BLOOD COUNT 4.66 x10^6/uL (3.82-5.3); RED CELL DISTRIBUTION WIDTH 13.3 % (9.6-15.2)
[2020-09-04 11:03] LABS: MD NO
[2020-09-04 11:11] LABS: ALANINE AMINOTRANSFERASE 22 U/L (12-78); ALBUMIN 4.3 g/dL (3.4-5.0); ANION GAP 7 mmol/L (5-15); CALCIUM 10.1 mg/dL (8.5-10.1); CHLORIDE 107 mmol/L (98-107); CREATININE 0.84 mg/dL (0.55-1.02)
[2020-09-04 11:15] LABS: ALKALINE PHOSPHATASE 82 U/L (45-117); BILIRUBIN,TOTAL 0.4 mg/dL (0.2-1.0); TROPONIN I < 0.015 ng/mL (0.000-0.045)
[2020-09-04 11:16] LABS: D-DIMER 0.38 ug/mlFEU (0.00-0.52); PROTHROMBIN TIME 10.7 Seconds (9.6-11.5)
[2020-09-04] MEDS ORDERED: SODIUM CHLORIDE 0.9%, 500ML IVBOLUS ONE (11:30)
[2020-09-04 12:08] VITALS: BP 133/89
== END 2020-09-04 13:03 | disposition home or self-care (01) ==
LOC: ED 11:13
DX: R53.83 Other fatigue (principal); R07.89 Other chest pain; I10 Essential (primary) hypertension; Z87.891 Personal history of nicotine dependence
CPT/HCPCS: 36415; 71045; 80053; 81003; 83880; 84443; 84484; 85025; 85379; 85610; 87040; 93005; 96360; 99285; J7040